=== PATIENT | female | born 1995 | race Caucasian/White ===

== ENCOUNTER 2024-03-08 02:38 | Emergency (ER) | payer OTHER ==
[2024-03-08 02:54] VITALS: BP 156/107; PULSE 93; RESP 16; TEMP 98.3; BMI 37.4
== END 2024-03-08 03:24 | disposition home or self-care (01) ==
LOC: FER 02:38
DX: I10 Essential (primary) hypertension (principal); R51.9 Headache, unspecified
CPT/HCPCS: 93005; 99283-25

== ENCOUNTER 2024-06-16 20:21 | Emergency (ER) | payer OTHER ==
[2024-06-16 20:46] VITALS: RESP 18; BMI 37.4
[2024-06-16 21:51] VITALS: BP 109/75; PULSE 79; TEMP 98.4
[2024-06-16] MEDS ORDERED: LIDOCAINE PATCH REMOVAL MC SCH (22:00)
[2024-06-16] MEDS ORDERED: ACETAMINOPHEN 325 MG TABLET (FP) ONE (22:05)
[2024-06-16] MEDS ORDERED: diazePAM 5 MG TABLET ONE (22:06)
[2024-06-16] MEDS: ACETAMINOPHEN 325 MG TABLET (FP) PO ONE (22:07)
[2024-06-16] MEDS: diazePAM 5 MG TABLET PO ONE (22:07)
[2024-06-16] MEDS: LIDOCAINE 5% TOPICAL PATCH TP ONE (22:11)
[2024-06-16] MEDS ORDERED: LIDOCAINE 5% TOPICAL PATCH ONE (22:13)
== END 2024-06-16 22:19 | disposition home or self-care (01) ==
LOC: FER 20:21
DX: M54.2 Cervicalgia (principal); V43.62XA Car passenger injured in collision with other type car in traffic accident, initial encounter; Y92.410 Unspecified street and highway as the place of occurrence of the external cause
CPT/HCPCS: 99283-25